=== PATIENT | female | born 1970 | race Caucasian/White ===

== ENCOUNTER 2017-08-18 15:46 | Emergency (ER) | payer MEDICARE, OTHER ==
[2017-08-18 15:53] VITALS: RESP 16; TEMP 97.7
[2017-08-18] MEDS ORDERED: NITROGLYCERIN OINT 1 INCH/GM PACKET TOPICAL STA (16:10)
[2017-08-18 16:27] LABS: Basophils % (A) 0 %; Eosinophils # (A) 0.2 k/uL (0-0.7); Eosinophils % (A) 3 %; HCT 44.9 % (34.0-46.0); HGB 15.8 gm/dL (11.4-16.0); Lymphocytes # (A) 1.6 k/uL (1.0-4.8); Lymphocytes % (A) 19 %; MCH 32.3 pg (25.0-35.0); MCHC 35.2 g/dL (31.0-37.0); MCV 91.8 fL (80.0-100.0); Mean Platelet Volume 7.5; Monocytes # (A) 0.4 k/uL (0-1.0); Monocytes % (A) 5 %; Neutrophils # (A) 6.2 k/uL (1.3-7.7); Neutrophils % (A) 72 %; Platelet Count 275 k/uL (150-450); RBC 4.89 m/uL (3.80-5.40); RDW 13.7 % (11.5-15.5); WBC 8.6 k/uL (3.8-10.6)
[2017-08-18 16:32] LABS: ALT 23 U/L (9-52); AST 41 U/L (14-36); Albumin 3.2 g/dL (3.5-5.0); Alkaline Phosphatase 88 U/L (38-126); Anion Gap 10 mmol/L; Blood Urea Nitrogen 12 mg/dL (7-17); Calcium 8.8 mg/dL (8.4-10.2); Carbon Dioxide 22 mmol/L (22-30); Chloride 109 mmol/L (98-107); Glucose 131 mg/dL (74-99); Magnesium 1.8 mg/dL (1.6-2.3); Potassium 5.2 mmol/L (3.5-5.1); Sodium 141 mmol/L (137-145); Total Bilirubin 0.7 mg/dL (0.2-1.3); Total Protein 6.4 g/dL (6.3-8.2)
[2017-08-18 16:42] VITALS: BP 114/71; PULSE 85
[2017-08-18 16:51] LABS: Partial Thromboplastin Time 20.9 sec (22.0-30.0)
[2017-08-18 16:59] LABS: Creatine Kinase MB 1.1 ng/mL (0.0-2.4); Troponin I 0.521 ng/mL (0.000-0.034)
--- NOTE | 2017-08-18 17:01 | XR ---
EXAMINATION TYPE: XR chest 2V DATE OF EXAM: 08/18/2017 COMPARISON: NONE HISTORY: Chest pain TECHNIQUE: Frontal and lateral views of the chest are obtained. FINDINGS: Heart and mediastinum are normal. Lungs are clear. Diaphragm is normal. Bony thorax is int act. There are chest leads. IMPRESSION: Normal chest
--- NOTE | 2017-08-18 17:35 | ED ---
Chest Pain HPI - General Chief Complaint: Chest Pain Stated Complaint: Chest pain Time Seen by Provider: 08/18/17 15:54 Source: EMS Mode of arrival: EMS Limitations: no limitations - History of Present Illness Initial Comments: This 47-year-old white female presents with a complaint of some chest pain. This is in the midsternal region and described as a pressure. She states that she had some radiation down her left arm. She does have a history of cardiac disease and has had a previous stent in 2008. She also relates that she had a heart catheterization through [facility] in the [facility] approximately one month ago which did not show any significant abnormalities. She denies any shortness of breath. She denies any leg pain or swelling. She also has significant anxiety issues and has been told that her chest pain is all related to anxiety. She was very anxious upon entering the ER as well. She states that she thinks she has a heart attack every day. She was told that she needs to wear a life vest but she refuses to wear this. She denies any other complaints or modifying factors. - Related Data Home Medications Medication Instructions Recorded Confirmed ARIPiprazole [Abilify] 5 mg PO HS 08/18/17 08/18/17 Atorvastatin [Lipitor] 40 mg PO HS 08/18/17 08/18/17 Carvedilol [Coreg] 25 mg PO BID 08/18/17 08/18/17 Lisinopril [Zestril] 10 mg PO DAILY 08/18/17 08/18/17 Nitroglycerin Sl Tabs [Nitrostat] 0.4 mg SUBLINGUAL Q5M PRN 08/18/17 08/18/17 Ranolazine [Ranexa] 500 mg PO HS 08/18/17 08/18/17 busPIRone HCl [Buspar] 5 mg PO DAILY PRN 08/18/17 08/18/17 Allergies Allergy/AdvReac Type Severity Reaction Status Date / Time No Known Allergies Allergy Verified 08/18/17 16:25 Review of Systems ROS Statement: Those systems with pertinent positive or pertinent negative responses have been documented in the HPI. ROS Other: All systems not noted in ROS Statement are negative. Past Medical History Past Medical History: Heart Failure, Hyperlipidemia, Hypertension History of Any Multi-Drug Resistant Organisms: None Reported Past Surgical History: Section, Heart Catheterization With Stent, Hernia Repair Past Psychological History: Depression Smoking Status: Current every day smoker Past Alcohol Use History: None Reported Past Drug Use History: None Reported General Exam - General Exam Comments Initial Comments: GENERAL: The patient is well nourished and well hydrated. Patient is morbidly obese. VITAL SIGNS: Heart rate, blood pressure, respiratory rate reviewed as recorded in nurse's notes. EYES: Pupils are round and reactive. Extraocular movements are intact. No conjunctival / lid redness or swelling. ENT: No external evidence of injury, swelling, or ecchymosis. Airway is patent. Throat is clear. NECK: Nontender. No swelling or evidence of injury. No subcutaneous emphysema. Trachea is midline. No thyroid mass. HEART: Regular rate and rhythm. Good peripheral pulses. LUNGS/CHEST: Breath sounds clear and equal bilaterally. No rales, rhonchi, or wheezes. No ecchymosis, subcutaneous emphysema, or tenderness. ABDOMEN: Abdomen soft without tenderness. No palpable masses or organomegaly. No peritoneal signs. No abdominal wall swelling or ecchymosis. EXTREMITIES: No extremity tenderness or swelling. Normal muscle tone and function. No thoracolumbar tenderness. NEUROLOGIC: Sensation is grossly intact. Cranial nerve exam reveals face is symmetrical, tongue is midline, speech is clear. SKIN: No abrasions or ecchymosis is noted. No induration or masses noted. PSYCHIATRIC: Alert and oriented. Appears extremely anxious initially but this is improved on recheck. Limitations: no limitations Course Vital Signs 08/18/17 08/18/17 15:48 16:32 Temperature 97.7 F Pulse Rate 95 85 Respiratory 16 16 Rate Blood Pressure 130/79 114/71 O2 Sat by Pulse 97 93 L Oximetry Chest Pain MDM - MDM The patient was seen and examined. All diagnostics were reviewed. The EKG shows a normal sinus rhythm at a rate of 90. There is some T-wave inversions in lead 1 and aVL. There is no old EKGs for comparison other than the EMS EKG which looks similar. The PA intervals 142, QRS duration is 80, and the QTC intervals 430. The laboratory came back showing an elevation of the troponin but other laboratories essentially within normal limits. The chest x-ray did not show any acute process. It is felt that she is having a non-ST elevation myocardial infarction and that she should be admitted to the hospital for further treatment. She refuses admission. She states that she is chest pain- free at this time. She relates that she has gone through this multiple times previously and does not want to be admitted. A long discussion was held regarding risks and benefits. She does understand that we do feel as though she is having a heart attack at this time and that if she leaves them she potentially could have progression and possible arrhythmia, massive heart attack , and . She is alert and lucid and medical decision-making is intact and she still refuses admission despite this discussion. She does not want any further testing or treatment and would like to leave. She leaves AGAINST MEDICAL ADVICE. She is instructed to have very close follow-up with her corporate travel manager and return if symptoms do worsen or if she changes her mind regarding admission. Disposition Clinical Impression: Non-ST elevation myocardial infarction (NSTEMI), Chest pain, Anxiety, Morbid obesity, Left against medical advice Disposition: Left Against Medical Advice Condition: Serious Instructions: Chest Pain (ED), Anxiety (ED), Against Medical Advice (ED) Is patient prescribed a controlled substance at d/c from ED?: No Referrals: Nonstaff,Physician [Primary Care Provider] - 1-2 days Time of Disposition: 17:35
== END 2017-08-18 18:07 | disposition left against medical advice (07) ==
LOC: EC 15:46
DX: I21.4 Non-ST elevation (NSTEMI) myocardial infarction (principal); F41.9 Anxiety disorder, unspecified; E66.01 Morbid (severe) obesity due to excess calories; Z68.42 Body mass index [BMI] 45.0-49.9, adult; I11.0 Hypertensive heart disease with heart failure; I50.9 Heart failure, unspecified; E78.5 Hyperlipidemia, unspecified; F32.9 Major depressive disorder, single episode, unspecified; F17.200 Nicotine dependence, unspecified, uncomplicated; Z79.899 Other long term (current) drug therapy; Z95.5 Presence of coronary angioplasty implant and graft
CPT/HCPCS: 36415; 71046; 80053; 82550; 82553; 83735; 83880; 84484; 85025; 85610; 85730; 93005; 99285